=== PATIENT | female | born 1980 | race Two or more races ===

== ENCOUNTER 2023-04-26 07:45 | Emergency (ER) | payer SELFPAY ==
[~2023-04-26] VITALS: Ht 152.4 cm; Wt 84.0 kg
[2023-04-26 09:50] VITALS: PULSE 77; RESP 18; O2SAT 96
[2023-04-26] MEDS: LIDOCAINE 1% (LOCAL ANESTH.) PF 5ml SDV ID ONE (09:52)
[2023-04-26 10:02] VITALS: BP 179/108; PULSE 72; RESP 14; TEMP 97.8; O2SAT 98
[2023-04-26] MEDS ORDERED: NAPR1TAB93 PO (10:24)
[2023-04-26] MEDS: KETOROLAC TROMETH 60MG/2ML VIAL IM ONE (10:27)
== END 2023-04-26 10:45 | disposition home or self-care (01) ==
LOC: ER 07:45
DX: S53.125A Posterior dislocation of left ulnohumeral joint, initial encounter (principal); Z79.899 Other long term (current) drug therapy; W06.XXXA Fall from bed, initial encounter; Y93.89 Activity, other specified; Y92.098 Other place in other non-institutional residence as the place of occurrence of the external cause; Y99.8 Other external cause status
CPT/HCPCS: 24600; 73070; 96372; 99284; J1885